=== PATIENT | female | born 1950 | race Caucasian/White ===

== ENCOUNTER 2016-10-27 10:44 | Observation (INO) | payer MEDICARE, BC ==
[~2016-10-27] VITALS: Ht 157.5 cm; Wt 64.9 kg
[~2016-10-27 10:44] MED LIST: /ESCI10TA; BONIVA; CALCCHW12; CLARINEX; CLIMARA; HYDR25TA6; MELOPOW; MULTIVIT; PREG50CA; PROVOCHOL; SOMA250T; ULTRTA; VICO5TAB; VITA200C; VITAMIN D50000 UNT; VITATAB38; ZETI10TA
[2016-10-27] MEDS ORDERED: PRAV40TA2 (11:08)
[2016-10-27] MEDS ORDERED: CARV25TA (11:08)
[2016-10-27] MEDS ORDERED: ZOLP10TA2 (11:08)
[2016-10-27] MEDS ORDERED: NS 1,000 ML IV ONE (13:15)
[2016-10-27 13:16] LABS: BASO % 0.1 % (0.0-1.0); EOS % 0.9 % (0.0-3.0); LARGE UNSTAINED CELL # 0.1 K/mm3 (0.0-0.4); LARGE UNSTAINED CELL % 1.1 % (0.0-4.0); LYMPH # 0.6 K/mm3 (1.5-4.5); MEAN CORPUSCULAR HEMOGLOBIN 28.3 pg (27.0-33.0); MEAN CORPUSCULAR HGB CONC 32.6 g/dl (32.0-36.5); MEAN CORPUSCULAR VOLUME 86.9 fl (80.0-96.0); MONO # 0.5 K/mm3 (0.0-0.8); MONO % 7.8 % (0.0-5.0); NEUTROPHILS # 4.9 K/mm3 (1.8-7.7); NEUTROPHILS % 81.2 % (36.0-66.0); PLATELET COUNT, AUTOMATED 145 k/mm3 (150-450); RED CELL DISTRIBUTION WIDTH 14.2 % (11.5-14.5)
[2016-10-27 13:27] LABS: INR 0.96
--- NOTE | 2016-10-27 13:35 | REP ---
Syncope. PRIORS: None. TECHNIQUE: 4.5 mm contiguous transaxial sections were obtained from the skull base to the cerebral convexities with thin cuts through the posterior fossa without the administration of intravenous contrast. FINDINGS: The ventricles and sulci are consistent with the patient's age. There are no extra-axial fluid collections. There is no mass effect. The deep cerebral white matter is consistent with the patient's age. The orbital and petrous structures , cerebellopontine angles, and posterior fossa are unremarkable. The sella turcica, cavernous, and paracavernous structures are essentially unremarkable. The visualized portions of the paranasal sinuses and mastoid air cells are clear. Images of the skull base show no gross abnormality. IMPRESSION: Essentially unremarkable CT examination of the brain. ? Signed by Fabio Adames DO 10/27/2016 02:09 P
[2016-10-27 13:36] LABS: ANION GAP 7 MEQ/L (8-16); BLOOD UREA NITROGEN 13 MG/DL (7-18); CALCIUM LEVEL 8.7 MG/DL (8.8-10.2); CARBON DIOXIDE LEVEL 29 MEQ/L (21-32); CHLORIDE LEVEL 106 MEQ/L (98-107); CREATININE FOR GFR 0.72 MG/DL (0.55-1.02); FREE T4 1.12 NG/DL (0.76-1.46); GLOMERULAR FILTRATION RATE > 60.0 (>45); GLUCOSE, FASTING 104 MG/DL (80-110); MAGNESIUM LEVEL 2.1 MG/DL (1.8-2.4); POTASSIUM SERUM 4.1 MEQ/L (3.5-5.1); SODIUM LEVEL 142 MEQ/L (136-145)
--- NOTE | 2016-10-27 13:43 | REP ---
Near syncope. COMPARISON: 09/19/2015. FINDINGS: The technique utilized in obtaining the radiograph has magnified the cardiac silhouette and accentuated the interstitial markings. The superior mediastinal structures are midline. The cardiac silhouette is unremarkable in size, shape, and position. The diaphragmatic surfaces of the lungs are regular, and the costophrenic angles are clear. The pulmonary verma are clear. The imaged osseous structures are intact. IMPRESSION: There is no acute cardiopulmonary disease. Signed by Fabio Adames DO 10/27/2016 02:09 P
[2016-10-27] MEDS ORDERED: ZOLP10TA2 PO (13:52)
[2016-10-27] MEDS ORDERED: CARV25TA PO (13:52)
[2016-10-27] MEDS ORDERED: CALCTAB68 PO (13:52)
[2016-10-27] MEDS ORDERED: PRAV40TA2 PO (13:52)
[2016-10-27] MEDS ORDERED: DULO1CAP3 PO (13:52)
--- NOTE | 2016-10-27 16:48 | HPE ---
DATE OF ADMISSION: 10/27/2016 PRIMARY CARE PROVIDER: Dr. Paulino. ATTENDING PHYSICIAN: Dr. Lujan. REASON FOR ADMISSION: Syncope. HISTORY OF PRESENT ILLNESS: Patient is a 65-year-old female with past medical history significant for hypertension, hyperlipidemia, anxiety, chronic obstructive pulmonary disease, insomnia, loss of hearing presented to the emergency room after she had a lightheaded episode and loss of consciousness. Patient stated she was walking in her house going to great a friend in the living room when she felt lightheaded, and slid down a wall, lost consciousness for a minute per her . Patient denied any prior episodes of syncopal episodes but she stated she has been feeling very sleepy and tired over the past week. In the emergency room, patient was found to be orthostatic with a blood pressure while lying was 143/72, and sitting was 117/68. In the emergency room patient was started on IV fluids. CT scan of the head was also done, which was unremarkable. Labs appear to be within normal limits. Patient was alert, oriented times three. Hospitalist was called for the admission. REVIEW OF SYSTEMS: 12-point review of systems was negative except for those mentioned above. PAST MEDICAL HISTORY: Significant for hearing loss, hyperlipidemia, hypertension, anxiety, chronic obstructive pulmonary disease, insomnia. PAST SURGICAL HISTORY: Coccyx surgery, tonsillectomy, section, eye lift. ALLERGIES: To SULFA and PENICILLIN, reaction swelling. SOCIAL HISTORY: Patient used to smoke 3/4 of a pack for 30 years. Quite 4 years ago. Denies alcohol use. Lives at home with her . FAMILY HISTORY: Non-contributory. HOME MEDICATIONS: Include Calcium vitamin D 1 tablet by mouth at bedtime - carvedilol 25 mg by mouth twice a day - duloxetine 60 mg daily - pravastatin 40 mg at bedtime - Zolpidem 10 mg at bedtime PHYSICAL FINDINGS: VITAL SIGNS: Temperature 97/.3, pulse 63, respiratory rate 18, blood pressure 129/65, pulse ox 99% on room air. HEENT: Pupils equal, round, reactive to light and accommodation. NECK: Supple. No jugular venous distention. LUNGS: Clear to auscultation bilaterally. ABDOMEN: Soft, non-tender, non-distended. EXTREMITIES: No cyanosis, clubbing or edema. LABORATORY FINDINGS: WBC 6, [id number], hematocrit 38.7, platelet count 145, sodium 142, potassium 4.1, chloride 106, BUN 13, creatinine 0.72, fasting glucose 104, lactic acid 1.1, magnesium 2.1, troponin less than 0.02. TSH 1.63, CT of the head as above. Chest x-ray was also done in the emergency room which showed no acute cardiopulmonary disease. ASSESSMENT AND PLAN; 1. Syncopal episode likely secondary to orthostatic hypotension. We will continue to monitor patient's blood pressure. Continue orthostatic blood pressures. We will monitor on telemetry. We will order carotid ultrasound. We will hold parameters on patient's Coreg. 2. History of hypertension. Patient is currently hypotensive. W e will continue to monitor. 3. Hyperlipidemia. Continue patient's medications for hyperlipidemia. 4. History of chronic obstructive pulmonary disease. Patient is not normally on oxygen, she is currently sating 99% on room air. We will continue to monitor. 5. History of anxiety. Continue patient' home medication. 6. Deep vein thrombosis prophylaxis. Sequential compression devices (SCDs) while in bed.
[2016-10-27] MEDS: NS 1,000 ML IV SCH (17:30)
[2016-10-27 18:00] VITALS: BP 137/68
[2016-10-27 20:22] VITALS: BP 146/73
[2016-10-27] MEDS ORDERED: PRAVASTATIN 20 MG TAB PO SCH (21:00)
[2016-10-27] MEDS ORDERED: zolPIDEM TARTRATE 5 MG TAB PO SCH (21:00)
[2016-10-27] MEDS ORDERED: CARVedilol 12.5 MG TAB PO SCH (21:00)
[2016-10-27 23:54] VITALS: BP 126/65
[2016-10-28 04:20] VITALS: BP 129/58
[2016-10-28 07:23] LABS: MEAN CORPUSCULAR HEMOGLOBIN 28.7 pg (27.0-33.0); RED CELL DISTRIBUTION WIDTH 14.4 % (11.5-14.5); WHITE BLOOD COUNT 4.4 K/mm3 (4.0-10.0)
[2016-10-28 07:43] LABS: ALBUMIN 3.1 GM/DL (3.2-5.2); ALBUMIN/GLOBULIN RATIO 1.07 (1.00-1.93); ALKALINE PHOSPHATASE 101 U/L (45-117); ALT/SGPT 20 U/L (12-78); ANION GAP 5 MEQ/L (8-16); AST/SGOT 13 U/L (15-37); BILIRUBIN,TOTAL 0.4 MG/DL (0.2-1.0); BLOOD UREA NITROGEN 7 MG/DL (7-18); CALCIUM LEVEL 8.2 MG/DL (8.8-10.2); CARBON DIOXIDE LEVEL 28 MEQ/L (21-32); CHLORIDE LEVEL 109 MEQ/L (98-107); CREATININE FOR GFR 0.64 MG/DL (0.55-1.02); GLOMERULAR FILTRATION RATE > 60.0 (>45); GLUCOSE, FASTING 103 MG/DL (80-110); POTASSIUM SERUM 3.3 MEQ/L (3.5-5.1); SODIUM LEVEL 142 MEQ/L (136-145)
[2016-10-28 08:00] VITALS: BP 158/69
[2016-10-28 08:02] VITALS: BP 144/61
[2016-10-28 08:04] VITALS: BP 135/68
[2016-10-28] MEDS ORDERED: POTASSIUM CHLORIDE 10 MEQ SR TABLET PO ONE (09:00)
[2016-10-28] MEDS ORDERED: DULoxetine 30 MG CAP (CYMBALTA) PO SCH (09:00)
[2016-10-28] MEDS ORDERED: ENOXAPARIN 30 MG/0.3 ML SYR (J1650) SC SCH (09:00)
--- NOTE | 2016-10-28 09:18 | ECGEPIP ---
Stationary ECG Study [facility] - ED Test Date: 2016-10-27 Pat Name: FLAKITO VENTURA Department: Room: - Gender: F Phys Therapist: ayana : 1950 Requested By: Donna Castillo Order Number: [id number] Reading MD: Lupe Cannon Measurements Intervals [place] Rate: 65 P: 44 CT: 110 QRS: -13 QRSD: 94 T: 42 QT: 409 QTc: 425 Interpretive Statements SINUS RHYTHM WITH SHORT CT INTERVAL NONSPECIFIC T-WAVE ABNORMALITY NO PRIOR FOR COMPARISON Electronically Signed On 10-28-2016 9:17:34 EDT by Lupe Cannon
--- NOTE | 2016-10-28 09:52 | REP ---
SYNCOPAL EPISODE. PRIORS: None. Mild intimal thickening is noted with a slight degree of echogenic material seen paralleling the carotid arterial french. There is no abnormal acoustic shadowing. RIGHT LEFT CCA systolic 78.8 cm/s 93.5 cm/s CCA diastolic 22.7 cm/s 34.1 cm/s ICA systolic 36.4 cm/s 58.9 cm/s ICA diastolic 19.1 cm/s 23.7 cm/s ICA/CCA ratio 0.46 0.63 Analysis of the spectral waveform shows no evidence of significant spectral broadening. There is antegrade flow seen in both vertebral arteries. IMPRESSION: Minimal plaque formation and minimal intimal thickening as described above. According to the NASCET consensus criteria, the exam is near normal certainly less than 50% stenosis with minimal findings as described above. Signed by Fabio Adames DO 10/28/2016 09:55 A
[2016-10-28] MEDS: NS 1,000 ML IV SCH (10:02)
[2016-10-28 12:00] VITALS: BP 141/74
--- NOTE | 2016-10-28 13:38 | REP ---
Syncopal episode. COMPARISON: None. The craniovertebral junction is within normal limits. The imaged portion of the spinal cord and neural canal are within normal limits. The ventricles and sulci are within normal limits. There are no extra-axial fluid collections. There is no shift of the midline structures. There are scattered T2 hypersignal and particularly FLAIR deep white matter signal hyperintensities in no particular fashion. No abnormal signal is seen on the DWI or ADC mapped images. The sella turcica, cavernous, and paracavernous structures are within normal limits. The orbital and petrous structures, cerebellopontine angles, and posterior fossa are within normal limits. The imaged paranasal sinuses and mastoid air cells are clear. IMPRESSION: Scattered tiny deep white matter signal hyperintensities, which are nonspecific but likely represent age-related deep white matter ischemic changes. This needs to be correlated clinically with appropriate followup. Signed by Fabio Adames DO 10/28/2016 03:24 P
[2016-10-28] MEDS ORDERED: CORE6.25 PO (14:58)
--- NOTE | 2016-10-29 20:41 | IPN ---
DATE: 10/28/2016 Ms. Brennan is feeling better this morning. She has been up, walking around, has not felt weak or lightheaded, although she does tell me the story that over the course of the last year or so, she has intermittently had difficulty with speech, word finding, and has not really mentioned that to anyone before and wonders if this is all possibly related. She does not usually suffer from symptoms with position change. Temperature 98.6, pulse 80, respiratory rate 18, blood pressure 129/58, 95% on room air. Intake and output is notable for a positive fluid balance of 1100, no bowel movements noted. She is awake, appropriately interactive, somewhat anxious, (cut off) for approximately 24 hours. Head is normocephalic. Neck is supple. Facies appear symmetrical. Breathing is symmetrical and rested. I:E ratio is 1:3. Heart is distant sounding, normal S1, S2. No murmur, rub, or gallop. There is no carotid bruit noted. Abdomen is soft, doughy, nontender. I was able to observe her with a normal gait. White cell count 4.4, hemoglobin 11.3, platelets 158. BUN 7, creatinine 0.6, troponins negative times three, potassium 3.3. My assessment is as follows: This is a 65-year-old with a syncopal episode. Plan will be as follows: 1. Syncopal episode. Most likely related to orthostatic hypotension, but given the fact that she has had difficulty with word finding over the course of the last year, I believe a neurologic assessment with MRI/MRA of the brain is important and that has been ordered for now. Carotid ultrasound was unremarkable which was discussed in general with the radiologist. 2. The patient has history of hypertension. I would like to entirely hold her beta blockade for now. She has been on this current dose of beta blockade for some time. Will continue to monitor on telemetry. 3. The patient has hyperlipidemia. Continue her current regimen. 4. The patient has history of chronic obstructive pulmonary disease (COPD). 5. The patient has history of anxiety. 6. The patient has appropriate deep venous thrombosis (DVT) prophylaxis.
--- NOTE | 2016-10-30 11:14 | REP ---
MRA BRAIN WITHOUT CONTRAST: HISTORY: Syncope. The examination is available for review at 11:00 a.m. this date. 3D [id number] MR angiography was performed at the level of the [place]. There is no aneurysm or arteriovenous malformation. Mild atherosclerotic disease involves the cavernous and supraclinoid internal carotid arteries and A1 segment of the right anterior cerebral artery. Major intracranial vessels are patent. The vertebral arteries are equal in size. IMPRESSION: There is no aneurysm or arteriovenous malformation. Atherosclerotic disease as described above. Signed by Eliot Agrawal MD 10/30/2016 11:25 A
== END 2016-10-28 16:17 | disposition home or self-care (01) ==
LOC: M ED 13:02 → M ED INP 15:07
PROVIDERS: ADMIT Internal Medicine; ATTEND Internal Medicine
DX: R55 Syncope and collapse (principal); I10 Essential (primary) hypertension; J44.9 Chronic obstructive pulmonary disease, unspecified; F41.9 Anxiety disorder, unspecified; E78.4 Other hyperlipidemia; G47.00 Insomnia, unspecified; Z87.891 Personal history of nicotine dependence; Z79.899 Other long term (current) drug therapy
CPT/HCPCS: 36415; 70450; 70544; 70551; 71010; 80048; 80053; 82550; 82553; 83605; 83735; 84439; 84443; 84484; 85025; 85027; 85610; 85730; 93005; 93041; 93880; 94760; 96360; 96361; 99285; G0378; G0480

== ENCOUNTER → 2017-02-02 | Outpatient (CLI) | payer BC, MEDICARE ==
[~2017-02-02] MED LIST changes: +CALCTAB68 PO; +CARV25TA; +CARV25TA PO; +CORE6.25 PO; +DULO1CAP3 PO; +PRAV40TA2; +PRAV40TA2 PO; +ZOLP10TA2; +ZOLP10TA2 PO
--- NOTE | 2017-02-02 14:08 | REP ---
LEFT RIB SERIES: Four views of the left ribs are performed and demonstrate no evidence of fracture or bone lesion. An accompanying view of the chest demonstrates no acute infiltrate, pneumothorax or pleural effusion. Heart is not significantly enlarged. There is calcification and tortuosity of the thoracic aorta. IMPRESSION: Negative left rib series. Signed by Monty Carrillo MD 02/02/2017 03:21 P
== END ==
LOC: M WUC 11:30
PROVIDERS: ATTEND Physician Assistant
DX: S20.212A Contusion of left front wall of thorax, initial encounter (principal); Y92.89 Other specified places as the place of occurrence of the external cause; X58.XXXA Exposure to other specified factors, initial encounter; Y99.9 Unspecified external cause status; Y93.9 Activity, unspecified

== ENCOUNTER → 2017-06-25 | Outpatient (REF) | payer BC | LOC: M LAB REF 17:21 | PROVIDERS: ATTEND Family Medicine | DX: N76.0 Acute vaginitis (principal) ==

== ENCOUNTER → 2018-01-21 | Outpatient (CLI) | payer BC ==
[2018-01-21 18:24] LABS: ALBUMIN/GLOBULIN RATIO 1.33 (1.00-1.93); ALKALINE PHOSPHATASE 154 U/L (45-117); ALT/SGPT 24 U/L (12-78); ANION GAP 6 MEQ/L (8-16); AST/SGOT 18 U/L (7-37); BILIRUBIN,TOTAL 0.5 MG/DL (0.2-1.0); BLOOD UREA NITROGEN 10 MG/DL (7-18); CALCIUM LEVEL 8.7 MG/DL (8.8-10.2); CARBON DIOXIDE LEVEL 29 MEQ/L (21-32); CHLORIDE LEVEL 107 MEQ/L (98-107); CREATININE FOR GFR 0.81 MG/DL (0.55-1.30); FERRITIN 5 NG/ML (8-252); GLOMERULAR FILTRATION RATE > 60.0 (>45); GLUCOSE, FASTING 121 MG/DL (70-100); IRON (FE) 57 UG/DL (50-170); PERCENT SATURATION 13.2 % (13.2-45.0); POTASSIUM SERUM 3.9 MEQ/L (3.5-5.1); RHEUMATOID FACTOR QUANT < 10.0 IU/ML (<15.0); SODIUM LEVEL 142 MEQ/L (136-145); TOTAL IRON BINDING CAPACITY 432 UG/DL (250-450)
[2018-01-21 18:25] LABS: D-DIMER QUANT 296.8 ng/ml (<500)
[2018-01-21 19:00] LABS: BASO % 0.4 % (0.0-1.0); EOS # 0.2 10^3/uL (0.0-0.50); EOS % 2.9 % (0.0-3.0); HEMATOCRIT 40.9 % (36.0-47.0); HEMOGLOBIN 12.7 g/dl (12.0-15.5); IMMATURE GRANULOCYTE % 0.2 % (0-3.0); LYMPH # 1.8 10^3/uL (1.5-4.5); LYMPH % 33.5 % (24.0-44.0); MEAN CORPUSCULAR HEMOGLOBIN 26.8 pg (27.0-33.0); MEAN CORPUSCULAR HGB CONC 31.1 g/dl (32.0-36.5); MEAN CORPUSCULAR VOLUME 86.3 fl (80.0-96.0); MONO # 0.5 10^3/uL (0.0-0.8); MONO % 8.6 % (0.0-5.0); NEUTROPHILS # 2.9 10^3/uL (1.8-7.7); NEUTROPHILS % 54.4 % (36.0-66.0); PLATELET COUNT, AUTOMATED 251 10^3/uL (150-450); RED BLOOD COUNT 4.74 10^6/uL (4.00-5.40); RED CELL DISTRIBUTION WIDTH 13.9 % (11.5-14.5); WHITE BLOOD COUNT 5.2 10^3/uL (4.0-10.0)
[2018-01-21 19:46] LABS: ERYTHROCYTE SEDIMENTATION RATE 7 mm/hr (0-30)
[2018-01-24 00:12] LABS: ANTINUCLEAR ANTIBODIES DIRECT Negative (Negative); Lyme Disease IgG/IgM Antibodie <0.91 ISR (0.00-0.90); Lyme Disease IgM Ab Quantitati <0.80 index (0.00-0.79); TISSUE TRANSGLUTAMINASE IgA <2 U/mL (0-3); TISSUE TRANSGLUTAMINASE IgG <2 U/mL (0-5)
[2018-01-24 00:12] LABS: CYCLIC CITRULLINATED PEPTIDE 6 units (0-19)
== END ==
LOC: M SMT 13:59
DX: R53.83 Other fatigue (principal); R06.02 Shortness of breath
CPT/HCPCS: 83550

== ENCOUNTER → 2018-04-21 | Outpatient (CLI) | payer BC | LOC: M WHC 09:23 | DX: Z12.31 Encounter for screening mammogram for malignant neoplasm of breast (principal); N60.31 Fibrosclerosis of right breast; N60.32 Fibrosclerosis of left breast | CPT/HCPCS: 77067 ==

== ENCOUNTER → 2019-07-09 | Outpatient (CLI) | payer BC ==
[~2019-07-09] MED LIST changes: -/ESCI10TA; -DULO1CAP3 PO; +DULO1CAP6 PO; +LEXA1TAB
--- NOTE | 2019-07-09 14:30 | REPMRS ---
Patient History The patient states she had a clinical breast exam in 02/2019. Patient is postmenopausal and has history of melanoma skin cancer at age 56. No known family history of cancer. No Hormone Replacement Therapy 3D TOMOSYNTHESIS WAS PERFORMED. [facility] for breast cancer is 5.1%. Digital Woman Screen Mammo: July 09, 2019 - Exam #: [id number] Bilateral CC and MLO view(s) were taken. Technologist: Ree Ambriz, Technologist Prior study comparison: April 21, 2018, bilateral digital woman screen mammo performed at [facility] [place]. May 17, 2015, digital woman screen mammo performed at [facility] [place]. FINDINGS: The breast tissue is heterogeneously dense. This may lower the sensitivity of mammography. There has been no change in the appearance of the mammogram from the prior studies. There is a moderate amount of residual fibroglandular tissue which is fairly symmetric. There is no interval development of dominant mass, areas of architectural distortion, or clustered microcalcification typical of malignancy. Assessment: BI-RADS/ACR category 1 mammogram. Negative Mammogram. Recommendation Routine screening mammogram in 1 year (for women over age 40). This mammogram was interpreted with the aid of an FDA-approved computer-aided dectection system. Electronically Signed By: Monty Carrillo MD 07/09/19 [id number]
== END ==
LOC: M WHC 13:40
PROVIDERS: ATTEND Physician Assistant
DX: Z12.31 Encounter for screening mammogram for malignant neoplasm of breast (principal); Z78.0 Asymptomatic menopausal state; Z85.828 Personal history of other malignant neoplasm of skin

== ENCOUNTER → 2019-12-31 | Outpatient (CLI) | payer BC ==
[2019-12-31 11:40] LABS: ALBUMIN 3.8 GM/DL (3.2-5.2); ALT/SGPT 25 U/L (12-78); BILIRUBIN,TOTAL 0.7 MG/DL (0.2-1.0); BLOOD UREA NITROGEN 12 MG/DL (7-18); CARBON DIOXIDE LEVEL 30 MEQ/L (21-32); CHLORIDE LEVEL 109 MEQ/L (98-107); CHOLESTEROL LEVEL 205 MG/DL (<200); CHOLESTEROL RISK RATIO 3.059 (<5); CREATININE FOR GFR 0.79 MG/DL (0.55-1.30); GLOMERULAR FILTRATION RATE > 60.0 (>45); GLUCOSE, FASTING 106 MG/DL (70-100); HDL CHOLESTEROL 67 MG/DL (>40); HEMOGLOBIN A1c 6.2 %; LDL CHOLESTEROL 112 MG/DL (<100); NON-HDL-C 138 MG/DL; POTASSIUM SERUM 4.4 MEQ/L (3.5-5.1); SODIUM LEVEL 143 MEQ/L (136-145); TOTAL PROTEIN 6.5 GM/DL (6.4-8.2); TRIGLYCERIDES LEVEL 130 MG/DL (<150)
== END ==
LOC: M PLALAB 09:47
PROVIDERS: ATTEND Family Medicine
DX: R73.01 Impaired fasting glucose (principal)

== ENCOUNTER → 2020-05-21 | Outpatient (CLI) | payer BC ==
[2020-05-21 13:28] LABS: ALT/SGPT 23 U/L (12-78); BILIRUBIN,TOTAL 0.5 MG/DL (0.2-1.0); BLOOD UREA NITROGEN 8 MG/DL (7-18); CALCIUM LEVEL 9.4 MG/DL (8.8-10.2); CARBON DIOXIDE LEVEL 31 MEQ/L (21-32); CHLORIDE LEVEL 107 MEQ/L (98-107); CREATININE FOR GFR 0.83 MG/DL (0.55-1.30); GLOMERULAR FILTRATION RATE > 60.0 (>45); GLUCOSE, FASTING 97 MG/DL (70-100); POTASSIUM SERUM 4.4 MEQ/L (3.5-5.1); SODIUM LEVEL 141 MEQ/L (136-145); TOTAL PROTEIN 6.7 GM/DL (6.4-8.2)
[2020-05-21 14:04] LABS: HEMOGLOBIN A1c 5.9 %
== END ==
LOC: M WUC 10:20
PROVIDERS: ATTEND Physician Assistant
DX: R73.01 Impaired fasting glucose (principal)

== ENCOUNTER → 2020-07-20 | Outpatient (REF) | payer BC | LOC: M SFHCWAGY 18:02 | PROVIDERS: ATTEND Nurse Practitioner Family | DX: Z12.4 Encounter for screening for malignant neoplasm of cervix (principal) ==

== ENCOUNTER → 2020-07-20 | Outpatient (CLI) | payer BC ==
--- NOTE | 2020-07-20 15:40 | REPMRS ---
Patient History The patient states she had a clinical breast exam in 07/2020 No known family history of cancer. No Hormone Replacement Therapy 3D TOMOSYNTHESIS WAS PERFORMED. The [facility] lifetime risk for breast cancer is 4.8%. [place] breast density b. Digital Woman Screen Mammo: July 20, 2020 - Exam #: [id number] Bilateral CC and MLO view(s) were taken. Technologist: Cris Emmanuel, Technologist Prior study comparison: July 09, 2019, bilateral digital woman screen mammo performed at [facility]. April 21, 2018, bilateral digital woman screen mammo performed at [facility]. FINDINGS: There are scattered fibroglandular densities. There has been no change in the appearance of the mammogram from the prior studies. There is a mild amount of residual fibroglandular tissue which is fairly symmetric. There is no interval development of dominant mass, architectural distortion, or clustered microcalcification suggestive of malignancy. Assessment: BI-RADS/ACR category 1 mammogram. Negative Mammogram. Recommendation Routine screening mammogram in 1 year (for women over age 40). This mammogram was interpreted with the aid of an FDA-approved computer-aided dectection system. Electronically Signed By: Monty Carrillo MD 07/20/20 [id number]
--- NOTE | 2020-07-20 15:48 | DEXAMM ---
INDICATION: Z78.0 MENOPAUSAL. COMPARISON: 04/07/2014 as well as other prior exams. TECHNIQUE: Bone density was measured using dual-energy x-ray absorptiometry (DEXA). FINDINGS: AP SPINE L1-L4 BMD 0.890 g/cm2 Young Adult T-Score -2.5 Age Matched Z-Score -0.8. LT FEMUR, TOTAL BMD 0.671 g/cm2 Young Adult T-Score -2.7 Age Matched Z-Score -1.3. LT NECK BMD 0.647 g/cm2 Young Adult T-Score -2.8 Age Matched Z-Score -1.2. RT FEMUR, TOTAL BMD 0.604 g/cm2 Young Adult T-Score -3.2 Age Matched Z-Score -1.9. RT NECK BMD 0.591 g/cm2 Young Adult T-Score -3.2 Age Matched Z-Score -1.6. IMPRESSION: There is low bone density of the spine. There is osteoporosis of the left hip. There is osteoporosis of the right hip. The density of the spine has decreased 16.4% since the initial exam on 11/04/2002. The density of the spine decreased 10.2% since most recent exam on 04/07/2014. The density of the left hip has decreased 19.1% since initial exam on 11/04/2002. The density of the left hip has decreased 6.4% since most recent exam on 04/07/2014. The density of the right hip has decreased 20.6% since the initial exam on 11/04/2002. The density of the right hip has decreased 7.2% since the most recent exam on 04/07/2014. FOLLOW-UP: Recommendation for the next bone density exam: 2 years. <Electronically signed by Monty Carrillo > 07/20/20 [id number]
== END ==
LOC: M WHC 14:27
PROVIDERS: ATTEND Nurse Practitioner Family
DX: Z12.31 Encounter for screening mammogram for malignant neoplasm of breast (principal); Z78.0 Asymptomatic menopausal state; M85.88 Other specified disorders of bone density and structure, other site; M81.0 Age-related osteoporosis without current pathological fracture

== ENCOUNTER → 2020-11-16 | Outpatient (CLI) | payer BC ==
[2020-11-16 13:28] LABS: BASO % 0.5 % (0.0-1.0); EOS # 0.1 10^3/uL (0.0-0.5); EOS % 2.1 % (0.0-3.0); HEMATOCRIT 43.3 % (36.0-47.0); LYMPH # 1.4 10^3/uL (1.5-5.0); LYMPH % 32.3 % (24.0-44.0); MEAN CORPUSCULAR HEMOGLOBIN 26.6 pg (27.0-33.0); MEAN CORPUSCULAR VOLUME 88.7 fl (80.0-96.0); MONO # 0.3 10^3/uL (0.0-0.8); MONO % 7.5 % (2.0-8.0); NEUTROPHILS # 2.4 10^3/uL (1.5-8.5); NEUTROPHILS % 57.4 % (36.0-66.0); PLATELET COUNT, AUTOMATED 219 10^3/uL (150-450); RED BLOOD COUNT 4.88 10^6/uL (4.00-5.40); WHITE BLOOD COUNT 4.2 10^3/uL (4.0-10.0)
[2020-11-16 13:56] LABS: ALBUMIN 3.7 GM/DL (3.2-5.2); ALT/SGPT 21 U/L (12-78); BILIRUBIN,TOTAL 0.5 MG/DL (0.2-1.0); BLOOD UREA NITROGEN 7 MG/DL (7-18); CALCIUM LEVEL 8.5 MG/DL (8.8-10.2); CARBON DIOXIDE LEVEL 30 MEQ/L (21-32); CHLORIDE LEVEL 110 MEQ/L (98-107); CHOLESTEROL LEVEL 190 MG/DL (<200); CHOLESTEROL RISK RATIO 2.714 (<5); CREATININE FOR GFR 0.62 MG/DL (0.55-1.30); GLOMERULAR FILTRATION RATE > 60.0 (>45); GLUCOSE, FASTING 106 MG/DL (70-100); HDL CHOLESTEROL 70 MG/DL (>40); LDL CHOLESTEROL 94 MG/DL (<100); NON-HDL-C 120 MG/DL; POTASSIUM SERUM 4.7 MEQ/L (3.5-5.1); SODIUM LEVEL 143 MEQ/L (136-145); TOTAL PROTEIN 6.4 GM/DL (6.4-8.2); TRIGLYCERIDES LEVEL 129 MG/DL (<150)
[2020-11-16 13:59] LABS: HEMOGLOBIN A1c 5.7 %
== END ==
LOC: M PLALAB 10:44
PROVIDERS: ATTEND Family Medicine
DX: E78.00 Pure hypercholesterolemia, unspecified (principal); R73.01 Impaired fasting glucose

== ENCOUNTER → 2021-11-06 | Outpatient (CLI) | payer BC | LOC: M WHC 10:08 | PROVIDERS: ATTEND Nurse Practitioner Adult Health | DX: Z12.31 Encounter for screening mammogram for malignant neoplasm of breast (principal) ==

== ENCOUNTER → 2022-01-16 | Outpatient (CLI) | payer BC ==
[~2022-01-16] MED LIST changes: +CALCD50TA PO; +ISOVUE-370 76% 100ML VIAL As Ordered ONE
== END ==
LOC: M RAD 10:36
PROVIDERS: ATTEND Family Medicine
DX: R05.3 Chronic cough (principal); R06.02 Shortness of breath

== ENCOUNTER → 2022-01-22 | Outpatient (CLI) | payer BC ==
[~2022-01-22] MED LIST changes: -ISOVUE-370 76% 100ML VIAL As Ordered ONE
== END ==
LOC: M LABSMTC 10:18
PROVIDERS: ATTEND Anesthesiology
DX: Z01.818 Encounter for other preprocedural examination (principal); Z11.52 Encounter for screening for COVID-19

== ENCOUNTER → 2022-01-24 | Outpatient (CLI) | payer BC | LOC: M CARPUL 10:03 | PROVIDERS: ATTEND Family Medicine | DX: R06.02 Shortness of breath (principal) ==

== ENCOUNTER → 2022-04-26 | Outpatient (REF) | payer BC | LOC: M LAB REF 17:00 | PROVIDERS: ATTEND Nurse Practitioner Adult Health | DX: N89.8 Other specified noninflammatory disorders of vagina (principal) ==

== ENCOUNTER → 2022-07-03 | Outpatient (CLI) | payer BC ==
[2022-07-03 14:12] LABS: BASO % 0.8 % (0.0-1.0); EOS # 0.2 10^3/uL (0.0-0.5); HEMOGLOBIN 13.1 g/dl (12.0-15.5); LYMPH # 1.5 10^3/uL (1.5-5.0); LYMPH % 29.1 % (24.0-44.0); MEAN CORPUSCULAR HEMOGLOBIN 26.6 pg (27.0-33.0); MEAN CORPUSCULAR HGB CONC 29.8 g/dl (32.0-36.5); MEAN CORPUSCULAR VOLUME 89.2 fl (80.0-96.0); MONO # 0.4 10^3/uL (0.0-0.8); MONO % 7.9 % (2.0-8.0); NEUTROPHILS % 58.8 % (36.0-66.0); PLATELET COUNT, AUTOMATED 224 10^3/uL (150-450); RED BLOOD COUNT 4.93 10^6/uL (4.00-5.40); WHITE BLOOD COUNT 5.1 10^3/uL (4.0-10.0)
[2022-07-03 14:38] LABS: ALBUMIN 3.7 G/DL (3.2-5.2); ALKALINE PHOSPHATASE 110 U/L (46-116); ALT/SGPT 19 U/L (7.0-40); AST/SGOT 20 U/L (<34); BILIRUBIN,TOTAL 0.7 MG/DL (0.3-1.2); BLOOD UREA NITROGEN 8 MG/DL (9-23); CALCIUM LEVEL 9.7 MG/DL (8.3-10.6); CARBON DIOXIDE LEVEL 30 MMOL/L (20-31); CHLORIDE LEVEL 104 MMOL/L (98-107); CHOLESTEROL LEVEL 218 MG/DL (<200); CHOLESTEROL RISK RATIO 3.09 (<5); CREATININE FOR GFR 0.83 MG/DL (0.55-1.30); GLOMERULAR FILTRATION RATE > 60.0 (>45); GLUCOSE, FASTING 98 MG/DL (74-106); HDL CHOLESTEROL 70.4 MG/DL (>40); LDL CHOLESTEROL 121.8 MG/DL (<100); NON-HDL-C 148 MG/DL; POTASSIUM SERUM 4.1 MMOL/L (3.5-5.1); SODIUM LEVEL 141 MMOL/L (136-145); TOTAL PROTEIN 6.5 G/DL (5.7-8.2); TRIGLYCERIDES LEVEL 129 MG/DL (<150)
[2022-07-03 14:39] LABS: THYROID STIMULATING HORMONE 1.989 uIU/ML (0.55-4.78); TOTAL 25(OH) VITAMIN D 51.4 NG/ML (20.0-100.0)
== END ==
LOC: M PLALAB 09:51
PROVIDERS: ATTEND Family Medicine
DX: E78.00 Pure hypercholesterolemia, unspecified (principal)

== ENCOUNTER → 2022-07-24 | Outpatient (REF) | payer BC | LOC: M SFHCDERM 14:12 | PROVIDERS: ATTEND Nurse Practitioner Family | DX: L57.0 Actinic keratosis (principal) ==

== ENCOUNTER → 2022-11-30 | Outpatient (CLI) | payer BC | LOC: M WHC 10:24 | PROVIDERS: ATTEND Family Medicine | DX: Z12.31 Encounter for screening mammogram for malignant neoplasm of breast (principal); M81.0 Age-related osteoporosis without current pathological fracture ==

== ENCOUNTER → 2022-11-30 | Outpatient (CLI) | payer BC ==
[2022-11-30 13:41] LABS: BASO % 0.4 % (0.0-1.0); EOS # 0.2 10^3/uL (0.0-0.5); HEMATOCRIT 40.2 % (36.0-47.0); HEMOGLOBIN 12.3 g/dl (12.0-15.5); LYMPH # 1.6 10^3/uL (1.5-5.0); LYMPH % 29.1 % (24.0-44.0); MEAN CORPUSCULAR HEMOGLOBIN 26.6 pg (27.0-33.0); MEAN CORPUSCULAR HGB CONC 30.6 g/dl (32.0-36.5); MEAN CORPUSCULAR VOLUME 86.8 fl (80.0-96.0); MONO # 0.4 10^3/uL (0.0-0.8); MONO % 7.8 % (2.0-8.0); NEUTROPHILS # 3.2 10^3/uL (1.5-8.5); NEUTROPHILS % 59.7 % (36.0-66.0); PLATELET COUNT, AUTOMATED 231 10^3/uL (150-450); RED BLOOD COUNT 4.63 10^6/uL (4.00-5.40); WHITE BLOOD COUNT 5.4 10^3/uL (4.0-10.0)
[2022-11-30 13:45] LABS: ALBUMIN 3.8 G/DL (3.2-5.2); ALKALINE PHOSPHATASE 112 U/L (46-116); ALT/SGPT 17 U/L (7.0-40); AST/SGOT 17 U/L (<34); BILIRUBIN,TOTAL 0.7 MG/DL (0.3-1.2); BLOOD UREA NITROGEN 9 MG/DL (9-23); CALCIUM LEVEL 9.3 MG/DL (8.3-10.6); CARBON DIOXIDE LEVEL 29 MMOL/L (20-31); CHLORIDE LEVEL 109 MMOL/L (98-107); CHOLESTEROL LEVEL 189 MG/DL (<200); GLOMERULAR FILTRATION RATE > 60.0 (>45); GLUCOSE, FASTING 98 MG/DL (74-106); HDL CHOLESTEROL 65.1 MG/DL (>40); LDL CHOLESTEROL 102.3 MG/DL (<100); NON-HDL-C 123.9 MG/DL; POTASSIUM SERUM 4.2 MMOL/L (3.5-5.1); SODIUM LEVEL 143 MMOL/L (136-145); TOTAL PROTEIN 6.2 G/DL (5.7-8.2); TRIGLYCERIDES LEVEL 108 MG/DL (<150)
[2022-11-30 13:47] LABS: THYROID STIMULATING HORMONE 1.317 uIU/ML (0.55-4.78)
[2022-11-30 13:48] LABS: FREE T4 1.17 NG/DL (0.89-1.76)
== END ==
LOC: M PLALAB 11:34
PROVIDERS: ATTEND Family Medicine
DX: I10 Essential (primary) hypertension (principal)

== ENCOUNTER → 2023-01-01 | Outpatient (CLI) | payer BC | LOC: M PLALAB 14:32 | PROVIDERS: ATTEND Family Medicine | DX: M85.851 Other specified disorders of bone density and structure, right thigh (principal); M16.11 Unilateral primary osteoarthritis, right hip ==

== ENCOUNTER → 2023-01-18 | Outpatient (CLI) | payer BC | LOC: M PLARAD 08:09 | PROVIDERS: ATTEND Family Medicine | DX: M54.16 Radiculopathy, lumbar region (principal) ==

== ENCOUNTER → 2023-02-25 | Outpatient (CLI) | payer BC | LOC: M RAD 09:33 | PROVIDERS: ATTEND Family Medicine | DX: R92.8 Other abnormal and inconclusive findings on diagnostic imaging of breast (principal); D48.0 Neoplasm of uncertain behavior of bone and articular cartilage | CPT/HCPCS: 78306; A9503 ==

== ENCOUNTER → 2023-11-07 | Outpatient (CLI) | payer BC | LOC: M PLAIMG 11:23 | PROVIDERS: ATTEND Family Medicine | DX: M54.6 Pain in thoracic spine (principal) ==

== ENCOUNTER → 2023-12-02 | Outpatient (CLI) | payer BC | LOC: M WHC 09:37 | PROVIDERS: ATTEND Family Medicine | DX: Z12.31 Encounter for screening mammogram for malignant neoplasm of breast (principal) ==

== ENCOUNTER → 2023-12-30 | Outpatient (CLI) | payer BC | LOC: M PLAIMG 12:45 | PROVIDERS: ATTEND Family Medicine | DX: R07.9 Chest pain, unspecified (principal) ==

== ENCOUNTER 2024-01-28 08:41 | Outpatient (CLI) | payer BC ==
[~2024-01-28] VITALS: Ht 157.5 cm; Wt 68.2 kg
[2024-01-28 08:55] VITALS: BP 117/77; O2SAT 98
[2024-01-28] MEDS: IRON SUCROSE 500 MG in NS 250 ML OVER 4 HRS IV ONE (09:21)
[2024-01-28 11:00] VITALS: BP 124/63; O2SAT 97
[2024-01-28 12:00] VITALS: BP 129/70; O2SAT 98
[2024-01-28 13:00] VITALS: BP 153/72; O2SAT 97
[2024-01-28 13:30] VITALS: BP 138/78; O2SAT 97
== END 2024-01-28 13:30 ==
LOC: M INFU 08:41
PROVIDERS: ATTEND Family Medicine
DX: D50.9 Iron deficiency anemia, unspecified (principal); Z88.0 Allergy status to penicillin; Z88.2 Allergy status to sulfonamides
CPT/HCPCS: 96365; 96366; J1756

== ENCOUNTER → 2024-02-14 | Outpatient (REF) | payer BC | LOC: M LAB REF 14:59 | PROVIDERS: ATTEND Family Medicine | DX: N76.0 Acute vaginitis (principal) ==

== ENCOUNTER → 2025-04-29 | Outpatient (CLI) | payer BC, MEDICARE ==
[~2025-04-29] MED LIST changes: -PRAV40TA2; -PRAV40TA2 PO; +PRAV40TA85; +PRAV40TA85 PO; +ZOLP10TA11; +ZOLP10TA11 PO; -ZOLP10TA2; -ZOLP10TA2 PO
== END ==
LOC: M CARPUL 09:48
PROVIDERS: ATTEND Registered Nurse
DX: R94.31 Abnormal electrocardiogram [ECG] [EKG] (principal)

== ENCOUNTER → 2025-05-18 | Outpatient (CLI) | payer BC | LOC: M EKG 10:52 | PROVIDERS: ATTEND Registered Nurse | DX: I48.0 Paroxysmal atrial fibrillation (principal); Z53.9 Procedure and treatment not carried out, unspecified reason ==

== ENCOUNTER → 2025-05-18 | Outpatient (CLI) | payer BC | LOC: M PLAIMG 10:06 | PROVIDERS: ATTEND Internal Medicine Critical Care Medicine | DX: R91.1 Solitary pulmonary nodule (principal) ==

== ENCOUNTER → 2025-06-01 | Outpatient (CLI) | payer BC | LOC: M CARPUL 10:54 | PROVIDERS: ATTEND Nurse Practitioner Family | DX: R94.31 Abnormal electrocardiogram [ECG] [EKG] (principal) | CPT/HCPCS: 78452; 93017; A9500; J2785 ==